=== PATIENT | male | born 1955 | race Caucasian/White ===

== ENCOUNTER 2022-08-31 07:41 | Emergency (ER) | payer MEDICARE, MEDICAID, SELFPAY ==
--- NOTE | ~2022-08-31 | XR_ITS ---
EXAMINATION: XR pelvis 1-2V DATE: 08/31/2022 08:37 INDICATION: Right hip pain. TECHNIQUE: An anteroposterior view of the pelvis on 2 radiographs was obtained. COMPARISON: CT abdomen and pelvis 08/08/2016 FINDINGS: Bone alignment is normal. No fracture. There is mild osteoarthritis of the hips. There is m ild lumbar spondylosis. IMPRESSION: 1. Mild osteoarthritis of the hips. Reviewed, dictated and finalized at location A. [facility]
[2022-08-31 07:59] VITALS: BP 128/84; PULSE 67; RESP 18; TEMP 36.3; O2SAT 96
--- NOTE | 2022-08-31 08:27 | ED.LOWEXIN ---
HPI - Extremity Injury (Lower) General Chief Complaint: Extremity Injury, Lower Stated Complaint: bumped r hip into doorknob Time Seen by Provider: 08/31/22 08:05 History of Present Illness HPI Narrative: This is a 67-year-old male with reported history of heart disease, status post pacemaker placement who presents the emergency department complaining of right hip pain after striking the hip on a door handle 4 days ago. He states pain is dull, rates 6/10, exacerbated by movement and direct pressure. He denies fall or head injury. Related Data Allergies Allergy/AdvReac Type Severity Reaction Status Date / Time naproxen Allergy Intermediate BREATHING Verified 10/18/18 15:36 ISSUES aspirin Allergy Unknown Verified 08/31/22 08:09 ibuprofen Allergy Unknown Verified 08/31/22 08:09 Review of Systems Review of Systems: CONSTITUTIONAL: Denies fever, chills, or sweats. EYES: Denies visual changes, redness, or discharge. ENT: Denies rhinorrhea, congestion, sore throat, or otalgia. CARDIOVASCULAR: Denies chest pain, palpitations, or edema. RESPIRATORY: Denies cough or dyspnea. GASTROINTESTINAL: Denies abdominal pain, nausea, vomiting, or diarrhea. GENITOURINARY: Denies dysuria or hematuria. SKIN: Denies rash or itching. MUSCULOSKELETAL: Right hip pain Denies back pain, or myalgia. NEUROLOGIC: Denies headache, numbness, dizziness, or weakness. PSYCHIATRIC: Denies anxiety or depression. PMFSH Past Medical History Medical History (Updated 08/31/22 @ 19:18 by Reza Livingstno MD) CAD (coronary artery disease) Diabetes mellitus HTN (hypertension) Surgical History Surgical History (Updated 08/31/22 @ 19:18 by Reza Livingston MD) S/P placement of cardiac pacemaker Exam Narrative: GENERAL: Well-developed, well-nourished, and in no acute distress. HEAD: Normocephalic, atraumatic. EYES: PERRLA and EOMI. ENT: Nares clear, no rhinorrhea or epistaxis. Mucous membranes moist. Oropharynx without tonsillar hypertrophy exudate or other lesions. Bilateral TMs pearly rosado nonbulging NECK: Supple. No adenopathy or masses. No carotid bruits or JVD CHEST: Clear to auscultation bilaterally. No respiratory distress. No rales or rhonchi HEART: Regular rate and rhythm. No murmur heard. Normal peripheral pulses. ABDOMEN: Soft, nontender, nondistended, normal active bowel sounds. EXTREMITIES: Normal range of motion. No edema. Obvious deformity. No noted ecchymosis. No significant tenderness to palpation over the distal femurs or pelvis. SKIN: Warm, dry, no rash. NEURO: No focal deficits. Alert and oriented x3. PSYCH: Normal mood and affect. Course Course Emergency Course: 09:30 - The patient was able to ambulate in the ED. Xray not concerning for fracture or dislocation. I suspect contusion as the cause of his pain. Discussed treatment with NSAIDs and Lidoderm patches. Discussed return and emergency precautions including signs/symptoms of neurovascular compromise. The patient voiced understanding and is comfortable with the plan. All questions answered to his satisfaction. Vital Signs Vital signs: Vital Signs Temperature 97.4 F L 08/31/22 07:59 Pulse Rate 67 08/31/22 07:59 Respiratory Rate 18 08/31/22 07:59 Blood Pressure 128/84 08/31/22 07:59 Pulse Oximetry 96 08/31/22 07:59 Oxygen Delivery Room Air 08/31/22 07:59 Temperature 97.4 F L 08/31/22 07:59 Pulse Rate 96 08/31/22 10:52 Respiratory Rate 20 08/31/22 10:52 Blood Pressure 164/86 H 08/31/22 10:52 Pulse Oximetry 98 08/31/22 10:52 Oxygen Delivery Room Air 08/31/22 07:59 MDM - Extremity Injury (Lower) MDM Narrative Medical decision making narrative: Plan: imaging, pain control, reassess Differential Diagnosis Differential diagnosis: Likely fracture of hip and other (contusion of hip, osteoarthritis, other) Discharge Plan Discharge Clinical Impression: Contusion of hip, right Patient Disposition: Home, Self-Care C
[2022-08-31] MEDS: LIDOCAINE 5% PATCH 1 PATCH TRANSDERM (10:10)
[2022-08-31 10:52] VITALS: BP 164/86; PULSE 96; RESP 20; O2SAT 98
== END 2022-08-31 10:54 | disposition home or self-care (01) ==
PROVIDERS: Emergency Provider Preventive Medicine Aerospace Medicine; PCP Physician Assistant
DX: S70.01XA Contusion of right hip, initial encounter (principal); I25.10 Atherosclerotic heart disease of native coronary artery without angina pectoris; E11.9 Type 2 diabetes mellitus without complications; I10 Essential (primary) hypertension; Z95.0 Presence of cardiac pacemaker; W22.8XXA Striking against or struck by other objects, initial encounter
CPT/HCPCS: 72170; 99283; A9270

== ENCOUNTER 2023-03-01 04:17 | Emergency (ER) | payer OTHER, SELFPAY ==
[2023-03-01 04:20] VITALS: BP 158/94; PULSE 64; RESP 21; TEMP 36.4; O2SAT 99
--- NOTE | 2023-03-01 04:53 | ED.GENADULT ---
HPI - General Adult General Chief complaint: Eye Problems Stated complaint: i think i have gravel in my eye or pink eye Time Seen by Provider: 03/01/23 04:39 History of Present Illness HPI narrative: Patient is a 67-year-old gentleman who presents the emergency department with chief complaint of left eye pain patient reports that this evening he started having irritation sensation like there was a foreign body in his eye patient states the pain is worse with movement and worse with blinking. Patient reports no trauma reports not getting anything in his eye that he knows of patient reports his eyes been matting the patient reports no change in his vision Related Data Allergies Allergy/AdvReac Type Severity Reaction Status Date / Time naproxen Allergy Intermediate BREATHING Verified 10/18/18 15:36 ISSUES aspirin Allergy Unknown Verified 08/31/22 08:09 ibuprofen Allergy Unknown Verified 08/31/22 08:09 Review of Systems Review of Systems: A 10 system review of systems was completed on the patient and is negative except for what is stated in the HPI. Nursing and ancillary documentation was reviewed. [facility] Past Medical History Medical History CAD (coronary artery disease) Diabetes mellitus HTN (hypertension) Surgical History Surgical History S/P placement of cardiac pacemaker Exam Narrative: GENERAL: Well-appearing, well-nourished, and in no acute distress. HEAD: Normocephalic, atraumatic. EYES: PERRLA and EOMI. small uptake of fluorescein at the central portion of the cornea no foreign body ENT: Nares clear, no rhinorrhea or epistaxis. Mucous membranes moist. NECK: Supple. CHEST: Clear to auscultation. No respiratory distress. HEART: Regular rate and rhythm. No murmur heard. Normal peripheral pulses. ABDOMEN: Soft, nontender, nondistended, normal active bowel sounds. EXTREMITIES: Normal range of motion. No edema. SKIN: Warm, dry, no rash. NEURO: No focal deficits. Alert and oriented x3. PSYCH: Normal mood and affect. Course Vital Signs Vital signs: Vital Signs Temperature 36.4 C 03/01/23 04:20 Pulse Rate 64 03/01/23 04:20 Respiratory Rate 21 H 03/01/23 04:20 Blood Pressure 158/94 H 03/01/23 04:20 Pulse Oximetry 99 03/01/23 04:20 Oxygen Delivery Room Air 03/01/23 04:20 Temperature 36.4 C 03/01/23 04:20 Pulse Rate 64 03/01/23 04:20 Respiratory Rate 21 H 03/01/23 04:20 Blood Pressure 158/94 H 03/01/23 04:20 Pulse Oximetry 99 03/01/23 04:20 Oxygen Delivery Room Air 03/01/23 04:20 Medical Decision Making MDM Narrative Medical decision making narrative: Differential diagnosis includes corneal abrasion, corneal foreign body, Exam was consistent with corneal abrasion patient was started on topical antibiotics and will be referred to ophthalmology Vital Signs Vital Signs: Vital Signs Temperature 36.4 C 03/01/23 04:20 Pulse Rate 64 03/01/23 04:20 Respiratory Rate 21 H 03/01/23 04:20 Blood Pressure 158/94 H 03/01/23 04:20 Pulse Oximetry 99 03/01/23 04:20 Oxygen Delivery Room Air 03/01/23 04:20 Temperature 36.4 C 03/01/23 04:20 Pulse Rate 64 03/01/23 04:20 Respiratory Rate 21 H 03/01/23 04:20 Blood Pressure 158/94 H 03/01/23 04:20 Pulse Oximetry 99 03/01/23 04:20 Oxygen Delivery Room Air 03/01/23 04:20 Discharge Plan Discharge Clinical Impression: Corneal abrasion Patient Disposition: Home, Self-Care Condition: Stable Instructions: Antibiotic Form, Corneal Abrasion (ED) Prescriptions: New moxifloxacin [Vigamox] 0.5 % drops 1 drp EACH EYE TID 7 Days Qty: 3 0RF No Action acetaminophen 500 mg capsule 1,000 mg PO Q8H PRN (Reason: pain) Qty: 90 0RF lidocaine [Lidoderm] 5 % adhesive patch,medicated 1 patch topical DAILY Qty: 30 0RF Rx Instruct
== END 2023-03-01 05:06 | disposition home or self-care (01) ==
LOC: ANHED 05:04
PROVIDERS: Emergency Provider Emergency Medicine; PCP Physician Assistant
DX: S05.02XA Injury of conjunctiva and corneal abrasion without foreign body, left eye, initial encounter (principal); I25.10 Atherosclerotic heart disease of native coronary artery without angina pectoris; E11.9 Type 2 diabetes mellitus without complications; X58.XXXA Exposure to other specified factors, initial encounter
CPT/HCPCS: 99283; A9270

== ENCOUNTER 2023-07-16 10:36 | Emergency (ER) | payer OTHER, SELFPAY ==
[2023-07-16 10:37] VITALS: BP 143/89; PULSE 62; RESP 18; TEMP 36.4; O2SAT 94
[2023-07-16 10:57] LABS: Glucose Point of Care 256 mg/dl (65-105)
--- NOTE | 2023-07-16 11:27 | ED.GENADULT ---
HPI - General Adult General Chief complaint: Recheck/Abnormal Lab/Rx Stated complaint: elevated BS Time Seen by Provider: 07/16/23 10:58 Source: patient Mode of arrival: ambulatory Limitations: no limitations History of Present Illness HPI narrative: 68-year-old male presenting for hyperglycemia. Sent in by PCP. Of note, patient ran out of his metformin and Jardiance about a month ago and has not been taking it. He started on it again yesterday after finding his blood sugar to be high his PCPs office. They still told him to come in and be seen here. He has no complaints at all. Took his medications yesterday and today. Related Data Allergies Allergy/AdvReac Type Severity Reaction Status Date / Time naproxen Allergy Intermediate BREATHING Verified 10/18/18 15:36 ISSUES aspirin Allergy Unknown Verified 08/31/22 08:09 ibuprofen Allergy Unknown Verified 08/31/22 08:09 Review of Systems Review of Systems: All systems reviewed & are unremarkable except as noted in HPI and below (HPI) [facility] Past Medical History Medical History CAD (coronary artery disease) Diabetes mellitus HTN (hypertension) Surgical History Surgical History S/P placement of cardiac pacemaker Exam Narrative: Constitutional: Generally well appearing, no acute distress Head: Atraumatic, no deformities. Eyes: Pupils equal, round, and reactive to light. Neck: Supple, no tracheal deviation, no JVD. ENMT: Mucous membranes moist Cardiovascular: S1, S2 auscultated. No murmurs, rubs, or gallops. No S3/S4. Normal Distal pulses. No peripheral edema. Respiratory: Lung sounds equal. No wheezes, rales, or rhonchi. Gastrointestinal: Abdomen was soft and non-tender. Non-distended. No rebound or guarding. Genitourinary: Deferred Musculoskeletal: Normal muscle tone and bulk. No obvious deformities or tenderness over extremities. Skin: No rashes. Neurological: Strength 5/5 in extremities. Cranial nerves I-XII grossly intact. Distal sensation intact. Mental Status: Awake, alert and oriented x3. Follows commands Course Vital Signs Vital signs: Vital Signs Temperature 36.4 C L 07/16/23 10:37 Pulse Rate 62 07/16/23 10:37 Respiratory Rate 18 07/16/23 10:37 Blood Pressure 143/89 H 07/16/23 10:37 Pulse Oximetry 94 07/16/23 10:37 Oxygen Delivery Room Air 07/16/23 10:37 Temperature 36.4 C L 07/16/23 10:37 Pulse Rate 62 07/16/23 10:37 Respiratory Rate 18 07/16/23 10:37 Blood Pressure 143/89 H 07/16/23 10:37 Pulse Oximetry 94 07/16/23 10:37 Oxygen Delivery Room Air 07/16/23 10:37 Medical Decision Making MDM Narrative Medical decision making narrative: 68-year-old well-appearing male presenting for elevated blood glucose in the setting of not taking his medications. Restarted them yesterday. Exam shows no acute abnormalities. Blood sugar recheck it is 250 here. Apparently was over 500 at his PCPs office. Will obtain some basic labs to evaluate for DKA but does not appear to be the case. Labs reviewed. No focal abnormality. No signs of DKA. Will not start patient on insulin here as it is improving significantly over the last few days and risk of causing him to be hypoglycemic is more than benefits of trying to get her sugar down from 250. Patient is agreeable with plan. Pt feeling improved and would like to go home at this point. Return precautions were given to the patient include any new or worsening symptoms or development of and not limited to any chest pain, shortness of breath, lightheadedness, abdominal pain, fevers, chills. Patient understands and agrees. They are to follow-up with her PCP. All questions were answered. I reviewed the patient's vital signs, history, allergies, and labs and imaging workup. Vital Signs Vital Signs: Vital Signs Temperature 36.4 C L 07/16/23 10:37 Puls
[2023-07-16 11:31] LABS: Basophils Percent Auto 0.6 % (0.2-1.2); Eosinophils Absolute Auto 0.1 K/mm3 (0-0.3); Eosinophils Percent Auto 1.6 % (0-4.4); Hematocrit 42.3 % (42.0-52.0); Hemoglobin 14.7 g/dL (14.0-18.0); Immature Granulocyte Absolute 0.01 K/mm3 (0.00-0.031); Immature Granulocyte Percent A 0.2 % (0-0.5); Lymphocytes Absolute Auto 1.59 K/mm3 (0.9-3.2); Mean Corpuscular HGB Conc 34.8 g/dl (32-36); Mean Corpuscular Hemoglobin 31.3 pg (26-34); Mean Corpuscular Volume 90.2 fl (80-100); Mean Platelet Volume 10.3 fl (7.4-10.4); Monocytes Absolute Auto 0.5 K/mm3 (0.1-0.6); Monocytes Percent Auto 7.7 % (2.6-8.5); Neutrophils Absolute Auto 4.1 K/mm3 (1.3-6.7); Neutrophils Percent Auto 64.9 % (45.5-73.1); Platelet Count Result 181 k/mm3 (150-375); Red Blood Count 4.69 M/mm3 (4.6-6.20); Red Cell Distribution Width 12.5 % (11.5-14.5); White Blood Count 6.4 K/mm3 (4.5-10.0)
[2023-07-16 11:49] LABS: Alanine Aminotransferase 20 U/L (6-50); Albumin Level 3.8 g/dL (3.5-5.1); Alkaline Phosphatase 124 U/L (38-126); Anion Gap 9 mmol/L (8-16); Aspartate Amino Transferase 24 U/L (17-59); Bilirubin,Total 1.2 mg/dL (0.2-1.3); Blood Urea Nitrogen 20 mg/dL (9-20); Calcium 8.8 mg/dL (8.4-10.2); Carbon Dioxide 29 mmol/L (22-30); Chloride 100 mmol/L (98-107); Estimated CRCL calculation 85 ml/min; Estimated Glomerular Filt Rate 60; Glucose 259 mg/dL (65-110); Potassium 3.3 mmol/L (3.4-5.0); Sodium 138 mmol/L (137-145)
[2023-07-16 11:59] VITALS: BP 123/78; PULSE 85; RESP 18; O2SAT 96
== END 2023-07-16 12:02 | disposition home or self-care (01) ==
PROVIDERS: Emergency Provider Emergency Medicine; PCP Physician Assistant
DX: E11.65 Type 2 diabetes mellitus with hyperglycemia (principal); T38.3X6A Underdosing of insulin and oral hypoglycemic [antidiabetic] drugs, initial encounter; Z91.138 Patient's unintentional underdosing of medication regimen for other reason; I25.10 Atherosclerotic heart disease of native coronary artery without angina pectoris; I10 Essential (primary) hypertension; Z79.84 Long term (current) use of oral hypoglycemic drugs; Z95.0 Presence of cardiac pacemaker
CPT/HCPCS: 36415; 80053; 82948; 85025; 99283